=== PATIENT | male | born 1925 | race Caucasian/White ===

== ENCOUNTER 2017-03-16 11:38 | Observation (INO) | payer MEDICARE, OTHER ==
--- NOTE | 2017-03-16 12:03 | ERNOTE ---
Dyspnea - Date Date of Service: 03/16/17 - General Presenting Symptoms: shortness of breath Time Seen by Provider: 03/16/17 11:40 Source: patient Exam Limitations: no limitations - Immun/Allergies/Home Medications Immunizations: IMMUNIZATION HX Immunizations Up to Date Yes History of Influenza Vaccine No Hx Pneumococcal Vaccination More Information Required Allergies/Adverse Reactions: Allergies No Known Allergies Allergy (Unverified 03/16/17 11:52) Home Medications: HOME MEDICATIONS Acetaminophen [Tylenol] 500 mg PO Q6H PRN 03/16/17 [Last Taken Unknown] Aspirin [Lo-Dose Aspirin EC] 81 mg PO DAILY 03/16/17 [Last Taken Unknown] Duloxetine HCl [Cymbalta] 60 mg PO DAILY 03/16/17 [Last Taken Unknown] Furosemide [Lasix] 80 mg PO DAILY 03/16/17 [Last Taken Unknown] Lovastatin 40 mg PO DAILY 03/16/17 [Last Taken Unknown] Metoprolol Succinate [Toprol Xl] 50 mg PO DAILY 03/16/17 [Last Taken Unknown] Multivit-Min36/Iron/Folic Acid [Geritol Complete Tablet] 1 each PO DAILY [Last Taken Unknown] Nitroglycerin [Nitrostat] 0.6 mg SL Q5M PRN 03/16/17 [Last Taken Unknown] Pregabalin [Lyrica] 100 mg PO TID 03/16/17 [Last Taken Unknown] traMADol HCL [Ultram] 50 mg PO Q6H PRN 03/16/17 [Last Taken Unknown] - History of Present Illness Narrative: Pt. comes in with three day history of significant SOB at all times but states that he has had nocturnal SOB for a week prior to the continuous SOB. Pt. denies any CP, fever, recent cough or cold s/sx. Pt. denies any NVD or abd pain. Pt. states tath he always has bloating and swelling and has a hx of bypass sx and is on medications for CHF. Review of Systems - Review of Systems Constitutional: Present: weakness, fatigue, malaise. Absent: fever, chills, diaphoresis EYE: Present: no symptoms reported ENT: Present: no symptoms reported Respiratory: Present: shortness of breath, orthopnea. Absent: cough, wheezing, stridor Cardiology: Present: edema. Absent: chest pain, palpitations Gastrointestinal/Abdominal: Present: eating less. Absent: nausea, vomiting, diarrhea, constipation, abdominal pain, drinking less Genitourinary: Present: no symptoms reported. Absent: frequency, pain, decreased urinary output, discharge Musculoskeletal: Present: no symptoms reported. Absent: back pain, joint pain Skin: Present: no symptoms reported Neurological: Present: no symptoms reported. Absent: headache, dizziness/light- headedness, numbness, tingling All Other Systems: All systems neg except as marked - Patient's Past Medical History Patient History - Medical: Arthritis Patient History - Cardiac/Respiratory: CHF, Hypertension Patient History - Cancer: Prostate Patient History - Surgical Procedures: Coronary Bypass Surgery - Social History Living Situations: home Psych History: No pertinent hx Smoking Status: Never smoker - Immunizations Immunizations Up to Date: Yes Hx Pneumococcal Vaccination: More Information Required to Determine History of Influenza Vaccine: No Physical Exam - Physical Exam General Appearance: Present: wd/wn, alert, no apparent distress Head Exam: Present: normal inspection, no evidence of injury Eye Exam: Normal inspection: bilateral, PERRL: bilateral, EOMI: bilateral Ears, Nose, Throat: Present: normal ENT inspection, normal pharynx Neck: Present: normal inspection, nontender. Absent: lymphadenopathy (R), lymphadenopathy (L) Respiratory: Present: no respiratory distress, chest nontender, decreased breath sounds, crackles Cardiovascular/Chest: Present: regular rate, rhythm, no murmur, normal peripheral pulses Back Exam: Present: normal inspection, normal range of motion, no CVA tenderness , no vertebral tenderness Extremity Exam: Present: normal inspection, non-tender, normal range of motion, pedal edema - +3-4 pitting, extremity edema - +3-4 pitting bilat. Absent: joint redness, joint swelling Neurological Exam: Present: alert, oriented, normal mood/affect, no motor/ sensory deficits Skin Exam: Present: normal color, warm/dry. Absent: pallor, skin rash ED Progress - Date and Time Seen: Date and Time: 03/16/17 13:[address] Cisneros and she would like us to consult cardiology at [facility] to see if they feel pt. is appropriate for treatment here. [address] Davenport at [facility] cardiology and he feels that we can manage pt. but recommends starting Imdur 10mg q 8 po and Hydralazine 25 mg q 8 for vasodilation for 48 hours and continuing as needed for HTN control. He also recommends continuing lasix for CHF exacerbation. [address] Cisneros again and she accepts admission with these recommendations on board. - Results and Orders Patient's Lab Results:: I have reviewed the patient's lab results. - Vital Signs Patient's Vital Signs:: I have reviewed the patient's vital signs. Vital Signs: Vital Signs 03/16/17 11:44 Temperature 37.8 C H Pulse Rate 53 L Respiratory 24 H Rate Blood Pressure 189/93 O2 Sat by Pulse 95 Oximetry - EKG EKG: other - SR with 1st degree avb no acute ST changes - X-Ray X-Ray #1 X-Ray: chest Interpretation: Reviewed by me X-ray Comments: TWO VIEW CHEST Comparison: 04/02/2006 Technique: Upright frontal and lateral views of the chest were obtained. Findings: The cardiac silhouette is mildly enlarged. There is been a median sternotomy since the prior study. The mediastinum and hilum appear essentially unchanged. Again seen is elevation the right hemidiaphragm with adjacent atelectasis. The lung markings are increased in the left lung base , which may reflect a developing infiltrate. There is mild hyperinflation. IMPRESSION: 1. MILDLY ENLARGED CARDIAC SILHOUETTE WITH MEDIAN STERNOTOMY. 2. CHRONIC ELEVATION RIGHT HEMIDIAPHRAGM WITH A SMALL AMOUNT OF ADJACENT ATELECTASIS. 3. INCREASED PARENCHYMAL DENSITY IN THE LEFT LUNG BASE, CONCERNING FOR DEVELOPING INFILTRATE. 4. CLINICAL CORRELATION REQUIRED. - Progress/Reassessment Chief Complaint: Dyspnea Departure Clinical Impression: CHF (congestive heart failure) Qualifiers: Congestive heart failure type: unspecified congestive heart failure type Congestive heart failure chronicity: acute on chronic Qualified Code(s): I50.9 - Heart failure, unspecified Pneumonia Qualifiers: Pneumonia type: due to unspecified organism Laterality: bilateral Lung location : lower lobe of lung Qualified Code(s): J18.9 - Pneumonia, unspecified organism - Departure Disposition: [facility] Condition: Serious Referrals: Meenu Poe MD [Primary Care Provider] -
[2017-03-16 12:06] LABS: Hematocrit 37.9 % (42.0-52.0); Hemoglobin 12.4 gm/dL (13.5-18.0); Mean Cell Volume 96.9 fl (78-100); Mean Corpuscular Hemoglobin 31.7 pg (27-31); Mean Corpuscular Hgb Conc 32.7 g/dl (32-36); Mean Platelet Volume 10.3 fl (6.0-9.5); Neutrophil % 76.6 % (42-75.0); Platelet Count 129 K/mm3 (150-450); Red Blood Count 3.91 M/mm3 (4.7-6.0); Red Cell Distribution Width 13.5 % (11.5-14.0); White Blood Count 6.6 K/mm3 (4.0-10.5)
[2017-03-16 12:25] LABS: Albumin * 3.2 gm/dl (3.4-5.0); Anion Gap 12.8 mmol/L (6.8-13.8); BUN/Creatinine Ratio 18.2 (9.0-21.6); Bilirubin, Total 0.5 mg/dL (0.0-1.1); Calcium * 8.7 mg/dL (7.9-10.9); Carbon Dioxide 31.4 mmol/L (24-32.6); Magnesium 1.9 mg/dL (1.2-2.8); Potassium 4.2 mmol/L (3.4-4.6)
[2017-03-16 12:31] LABS: Troponin I 0.115 ng/ml (0.00-0.10)
[2017-03-16] MEDS ORDERED: ASPIRIN 81 MG TAB.CHEW PO ONE (12:36)
[2017-03-16] MEDS ORDERED: FUROSEMIDE 10 MG/ML VIAL IV ONE (12:41)
[2017-03-16] MEDS ORDERED: FUROSEMIDE 10 MG/ML VIAL ONE (12:52)
[2017-03-16] MEDS ORDERED: ASPIRIN 81 MG TAB.CHEW ONE (12:52)
[2017-03-16] MEDS ORDERED: AZITHROMYCIN 250 MG TABLET PO ONE (12:55)
[2017-03-16] MEDS ORDERED: AZITHROMYCIN 250 MG TABLET ONE (13:11)
[2017-03-16] MEDS ORDERED: FUROSEMIDE 10 MG/ML VIAL IV SCH (13:45)
[2017-03-16] MEDS: hydrALAZINE HCL 25 MG TABLET PO SCH ×2 (15:02→21:53)
[2017-03-16] MEDS: ISOSORBIDE DINITRATE 10 MG TABLET PO SCH ×2 (15:05→22:15)
[2017-03-16] MEDS: PREGABALIN 50 MG CAPSULE PO SCH (17:37)
[2017-03-16] MEDS: FUROSEMIDE 10 MG/ML VIAL IV SCH (20:49)
--- NOTE | 2017-03-16 21:17 | HP ---
Chief Complaint - Chief Complaint Date of Service: 03/16/17 Time of Service: 21:05 Chief Complaint: shortness of breath, orthopnea, increased swelling to legs History of Present Illness: 89 years old male adm to the hospital from ER with reports of increased swelling to his legs, shortness of breath x 3 days, orthopnea and fatigue. pt stated he was having increased shortness of breath with exertion, his family was concerned and brought him to the ER. He denies cough, fever, chills,Patient a poor historian relative elias was called to obtained information but call wasn 't answered. Additional information was obtained from nurse and ER notes. In ER he was given IV Lasix and antbx initiated, CXR: Increased parenchymal density in left lung base concern for developing infiltrate. Mildly enlarge cardiac silhouette., trop 0.115--->0.115 continue to monitor. PMH significant for CABG approximately 10yrs ago, pt did not followed up with granite cutter since. Head Of [employer] consulted in [place] recommendation for Imdur, Lasix and hydralazine. Plan of care discussed with pt he verbalized understanding and agrees. - Patient's Past Medical History Patient History - Medical: Arthritis Patient History - Cardiac/Respiratory: CHF, CVA/Stroke, Hypertension, Myocardial Infarction Patient History - Cancer: Prostate Patient History - Surgical Procedures: Coronary Bypass Surgery, Other - left rotator cuff repair Patient History - Other: None - Family History Mother Family History - Medical: History Unknown Father Family History - Cardiac/Respiratory: Myocardial Infarction - Social History Living Situations: home Psych History: No pertinent hx Smoking Status: Never smoker Have you smoked in the past 12 months: No Alcohol Use: none Drug Use: none - Immunizations Immunizations Up to Date: Yes Hx Pneumococcal Vaccination: More Information Required to Determine History of Influenza Vaccine: No Review Of Systems (GEN) - Review of Systems Generalized/Overall Review: Present: Malaise, Fatigue, Weight gain EENTM: Present: No Symptoms Reported Respiratory: Present: Shortness of Breath, Orthopnea Cardiac: Present: Edema Abdominal: Present: No Symptoms Reported Genitourinary: Present: No Symptoms Reported Musculoskeletal: Present: No Symptoms Reported Neurological: Present: No Symptoms Reported Skin: Present: No Symptoms Reported Endocrine: Present: No Symptoms Reported Immunizations: IMMUNIZATION HX Immunizations Up to Date Yes History of Influenza Vaccine No Hx Pneumococcal Vaccination More Information Required Allergies/Adverse Reactions: Allergies Allergy/AdvReac Type Severity Reaction Status Date / Time No Known Allergies Allergy Verified 03/16/17 14:30 Home Medications: HOME MEDICATIONS Acetaminophen [Tylenol] 650 mg PO Q6H PRN 03/16/17 [Last Taken Unknown] Aspirin [Lo-Dose Aspirin EC] 81 mg PO DAILY 03/16/17 [Last Taken Unknown] Duloxetine HCl [Cymbalta] 60 mg PO DAILY 03/16/17 [Last Taken Unknown] Furosemide [Lasix] 80 mg PO DAILY 03/16/17 [Last Taken Unknown] Lovastatin 40 mg PO QPM 03/16/17 [Last Taken Unknown] Metoprolol Succinate [Toprol Xl] 50 mg PO DAILY 03/16/17 [Last Taken Unknown] Multivit-Min36/Iron/Folic Acid [Geritol Complete Tablet] 1 each PO DAILY [Last Taken Unknown] Nitroglycerin [Nitrostat] 0.6 mg SL Q5M PRN 03/16/17 [Last Taken Unknown] Pregabalin [Lyrica] 100 mg PO TID 03/16/17 [Last Taken Unknown] [place] Oil/[place]-3 Fatty Acids [Fish Oil] 1,200 mg PO DAILY 03/16/17 [Last Taken Unknown] traMADol HCL [Ultram] 50 mg PO Q6H PRN 03/16/17 [Last Taken Unknown] Exam - Exam Vital Signs: Vital Signs - Last Taken Temp 36.6 C 03/16/17 19:29 Pulse 72 03/16/17 20:49 Resp 18 03/16/17 19:29 BP 148/67 03/16/17 20:49 Pulse Ox 91 03/16/17 19:29 Constitutional: Present: Alert, Oriented x3, Cooperative, Morbidly obese ENT Exam: Present: normal ENT inspection Eye Exam: bilateral eye: normal inspection Neck: Present: non-tender, full range of motion Back Exam: Present: normal inspection Breasts: Present: Exam deferred Respiratory: Present: chest non-tender, no respiratory distress, decreased breath sounds Cardiovascular/Chest: Present: no chest tenderness, JVD, edema Peripheral Pulses: dorsalis-pedis (R): 2+, dorsalis-pedis (L): 2+ Abdomen: Present: Normal bowel sounds, soft, nontender /Rectal: Present: Exam deferred Extremity: Present: normal range of motion, lower extremity edema, slow capillary refill, swelling Skin Exam: Present: warm/dry Neurologic: Present: oriented x 3 Appearance: Present: appropriate appearance Eye contact: Present: cooperative Diagnostic Studies: Abnormal Lab Results 03/16/17 Range/Units 16:03 Troponin I 0.115 H* (0.00-0.10) ng/ml Laboratory Results WBC 6.6 K/mm3 (4.0-10.5) 03/16/17 12:00 RBC 3.91 M/mm3 (4.7-6.0) L 03/16/17 12:00 Hgb 12.4 gm/dL (13.5-18.0) L 03/16/17 12:00 Hct 37.9 % (42.0-52.0) L 03/16/17 12:00 MCV 96.9 fl (78-100) 03/16/17 12:00 MCH 31.7 pg (27-31) H 03/16/17 12:00 MCHC 32.7 g/dl (32-36) 03/16/17 12:00 RDW 13.5 % (11.5-14.0) 03/16/17 12:00 Plt Count 129 K/mm3 (150-450) L 03/16/17 12:00 MPV 10.3 fl (6.0-9.5) H 03/16/17 12:00 Immature Gran % (Auto) 0.60 % (0.001-0.429) H 03/16/17 12:00 Immature Gran # (Auto) 0.04 K/mm3 (0.000-0.0310) H 03/16/17 12:00 Neutrophils % 76.6 % (42-75.0) H 03/16/17 12:00 Lymphocytes % 11.8 % (20-51) L 03/16/17 12:00 Monocytes % 10.2 % (0.0-9) H 03/16/17 12:00 Eosinophils % 0.6 % (0.0-3.0) 03/16/17 12:00 Basophils % 0.2 % (0.0-1.0) 03/16/17 12:00 Nucleated RBC % 0.0 k/mm3 (0-1) 03/16/17 12:00 Neutrophils # 5.0 K/mm3 (1.3-6.0) 03/16/17 12:00 Lymphocytes # 0.8 k/mm3 (1.5-3.5) L 03/16/17 12:00 Monocytes # 0.7 k/mm3 (0.0-1.0) 03/16/17 12:00 Eosinophils # 0.0 k/mm3 (0.0-0.7) 03/16/17 12:00 Absolute Basophils 0.0 k/mm3 (0.0-0.1) 03/16/17 12:00 Sodium 147 mmol/L (132-142) H 03/16/17 12:00 Plasma Sodium 148 mmol/L (130-142) H 03/16/17 12:00 Potassium 4.2 mmol/L (3.4-4.6) 03/16/17 12:00 Chloride 107 mmol/L (97-106) H 03/16/17 12:00 Carbon Dioxide 31.4 mmol/L (24-32.6) 03/16/17 12:00 Anion Gap 12.8 mmol/L (6.8-13.8) 03/16/17 12:00 BUN 24 mg/dL (6-23) H 03/16/17 12:00 Creatinine 1.32 mg/dL (0.4-1.4) 03/16/17 12:00 Est GFR (Non-Af Amer) 54 mL/min (60-130) L 03/16/17 12:00 BUN/Creatinine Ratio 18.2 (9.0-21.6) 03/16/17 12:00 Random Glucose 142 mg/dL (70-110) H 03/16/17 12:00 Calcium 8.7 mg/dL (7.9-10.9) 03/16/17 12:00 Calcium Adj for Albumin 9.0 mg/dL (8.4-10.2) 03/16/17 12:00 Phosphorus 3.0 mg/dL (2.2-4.2) 03/16/17 12:00 Magnesium 1.9 mg/dL (1.2-2.8) 03/16/17 12:00 Total Bilirubin 0.5 mg/dL (0.0-1.1) 03/16/17 12:00 AST 24 U/L (0-48) 03/16/17 12:00 ALT 23 U/L (19-67) 03/16/17 12:00 Alkaline Phosphatase 71 U/L (50-170) 03/16/17 12:00 Troponin I 0.115 ng/ml (0.00-0.10) H* 03/16/17 16:03 B-Natriuretic Peptide 1008 pg/mL (5-650) H 03/16/17 12:00 Total Protein 7.0 gm/dL (6.2-8.2) 03/16/17 12:00 Albumin 3.2 gm/dl (3.4-5.0) L 03/16/17 12:00 Assessment/Plan - Assessment/Plan (1) Hypertension Problem: Chronic (2) CHF (congestive heart failure) Problem: Acute Qualifiers: Congestive heart failure type: unspecified congestive heart failure type Congestive heart failure chronicity: acute on chronic Qualified Code(s): I50.9 - Heart failure, unspecified (3) Pneumonia Problem: Acute Qualifiers: Pneumonia type: due to unspecified organism Laterality: bilateral Lung location: lower lobe of lung Qualified Code(s): J18.9 - Pneumonia, unspecified organism
[2017-03-17 00:23] LABS: Urine Bilirubin Negative (NEGATIVE); Urine Blood 250 /ul (NEGATIVE); Urine Ketone Negative (NEGATIVE); Urine Nitrite Negative (NEGATIVE); Urine Protein Negative (NEGATIVE); Urine Urobilinogen Normal (NORMAL)
[2017-03-17 00:42] LABS: Urine Appearance Cloudy; Urine Bacteria TRACE; Urine Color Pale Yellow; Urine RBC 25-50 /hpf (0-5); Urine WBC TRACE /hpf (0-5)
[2017-03-17] MEDS: FUROSEMIDE 10 MG/ML VIAL IV SCH (05:26)
[2017-03-17] MEDS: hydrALAZINE HCL 25 MG TABLET PO SCH ×2 (05:51→13:44)
[2017-03-17] MEDS: ISOSORBIDE DINITRATE 10 MG TABLET PO SCH ×2 (06:06→13:50)
[2017-03-17 06:11] LABS: Hematocrit 37.7 % (42.0-52.0); Hemoglobin 12.2 gm/dL (13.5-18.0); Mean Cell Volume 96.9 fl (78-100); Mean Corpuscular Hemoglobin 31.4 pg (27-31); Mean Corpuscular Hgb Conc 32.4 g/dl (32-36); Mean Platelet Volume 10.5 fl (6.0-9.5); Neutrophil # 5.3 K/mm3 (1.3-6.0); Neutrophil % 69.4 % (42-75.0); Platelet Count 139 K/mm3 (150-450); Red Blood Count 3.89 M/mm3 (4.7-6.0); Red Cell Distribution Width 13.5 % (11.5-14.0); White Blood Count 7.7 K/mm3 (4.0-10.5)
[2017-03-17 06:31] LABS: Anion Gap 11.6 mmol/L (6.8-13.8); BUN/Creatinine Ratio 19.9 (9.0-21.6); Carbon Dioxide 32.2 mmol/L (24-32.6); Chol/HDL Risk Ratio 2.2 mg/dL (3.3-5.0); Estimated Creat Clear 32.1; Potassium 3.8 mmol/L (3.4-4.6)
[2017-03-17] MEDS ORDERED: AZITHROMYCIN 250 MG TABLET PO SCH (09:00)
[2017-03-17] MEDS: PREGABALIN 50 MG CAPSULE PO SCH ×3 (09:20→16:21)
[2017-03-17] MEDS ORDERED: ASPIRIN 81 MG TABLET.DR PO SCH (12:30)
[2017-03-17] MEDS ORDERED: HEPARIN SODIUM,PORCINE 5,000 UNITS/ML VIAL SC SCH (12:30)
[2017-03-17] MEDS ORDERED: DULoxetine HCL 30 MG CAPSULE.SA PO SCH (12:30)
[2017-03-17] MEDS ORDERED: traMADol HCL 50 MG TABLET PO PRN (12:30)
[2017-03-17] MEDS ORDERED: NITROGLYCERIN 0.4 MG/TAB BTL SL PRN (12:42)
[2017-03-17] MEDS ORDERED: NYSTATIN 15 APPL BTL TP PRN (13:03)
[2017-03-17] MEDS ORDERED: FUROSEMIDE 20 MG, FUROSEMIDE 40 MG PO SCH ×2 (15:00)
--- NOTE | 2017-03-17 16:33 | DS ---
(1) Acute decompensated heart failure Problem: Acute Description of Stay: ADMISSION DATE: 03/16/2017 DISCHARGE DATE: 03/17/2017 ADMISSION HPI by OTF Serrano: 89 years old male adm to the hospital from ER with reports of increased swelling to his legs, shortness of breath x 3 days, orthopnea and fatigue. pt stated he was having increased shortness of breath with exertion, his family was concerned and brought him to the ER. He denies cough, fever, chills,Patient a poor historian relative elias was called to obtained information but call wasn 't answered. Additional information was obtained from nurse and ER notes. In ER he was given IV Lasix and antbx initiated, CXR: Increased parenchymal density in left lung base concern for developing infiltrate. Mildly enlarge cardiac silhouette., trop 0.115--->0.115 continue to monitor. 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 Handkerchief Sample Clerk consulted in [place] recommendation for Imdur, Lasix and hydralazine. Plan of care discussed with pt he verbalized understanding and agrees. HOSPITAL COURSE: The patient was admitted to the hospital for acute decompensation of diastolic heart failure. Cardiology from the [facility] hospitals and clinics was consulted by the emergency room physician and per the cardiologists recommendations the patient was continued on his home Lasix and added isosorbide 10 mg TID and hydralazine 25mg PO TID per cardiology dose recommendations. The patient had an uneventful admission and was feeling pretty much back to his baseline on the day of discharge. The patient will need to have close follow-up with his primary care provider and I would also recommend that the patient close follow-up with his straight tooth gear generator operator, Dr. Ashley. The patient should also have a BMP checked within 1 week. Of note, there is question of a possible developing infiltrate on chest x-ray in the emergency department and the patient was started on IV antibiotics at admission. However , the patient's white count is not elevated and he is afebrile so I checked pro- calcitonin which was unremarkable and thus his antibiotics were discontinued. We'll defer to PCP to determine whether or not he or she feels like follow-up chest x-ray is warranted. FOLLOW-UP APPOINTMENTS: -PCP, Dr. Poe, within 1 week -I would recommend that the patient be seen by his Handkerchief Sample Clerk, Dr. Ashley, within the next few weeks. NEW OR CHANGED MEDICATIONS: -Hydralazine 25mg PO TID -Isosorbid Dinitrate 10mg PO TID RADIOLOGY REPORTS: Two-view PA and lateral chest x-ray on 03/16/2017 showed: Mildly enlarged cardiac silhouette with median sternotomy. Chronic elevation right hemidiaphragm with a small amount of adjacent atelectasis. Increased parenchymal density in the left lung base concerning for developing infiltrate. Clinical correlation required. Transthoracic 2-D echocardiogram on 03/17/2017 showed: Left ventricle: Normal size. Mild concentric LVH. Ejection fraction 50-55% . Wall motion normal. Right ventricle: Normal size. Normal wall thickness. Atria: Left atrium is borderline dilated. Right atrial size is normal. Mitral valve: Findings consistent with pulmonary wedge pressures greater than 20 mmHg. Findings consistent with diastolic dysfunction. No evidence of mitral valve prolapse. No mitral valve stenosis. Moderate regurgitation. Tricuspid valve: Not well visualized, but grossly normal. Right ventricular systolic pressure is elevated at 36 mmHg. Aortic valve: Sclerosis without stenosis. Mild regurgitation. Pulmonic valve: Not well visualized. Mild regurgitation. Great vessels: Borderline aortic root dilatation. Pericardium/pleural: No pericardial effusion. Procedures Performed: none Results and Findings: Laboratory Tests 03/16/17 03/16/17 03/16/17 12:00 12:00 16:03 WBC 6.6 Hgb 12.4 L Hct 37.9 L MCV 96.9 Plt Count 129 L Sodium Plasma Sodium Potassium Chloride Carbon Dioxide Anion Gap BUN Creatinine Est GFR (Non-Af Amer) BUN/Creatinine Ratio Random Glucose Calcium Calcium Adj for Albumin 9.0 Phosphorus 3.0 Magnesium 1.9 Total Bilirubin 0.5 AST 24 ALT 23 Alkaline Phosphatase 71 Troponin I 0.115 H* 0.115 H* B-Natriuretic Peptide 1008 H Total Protein 7.0 Albumin 3.2 L Triglycerides Cholesterol LDL Cholesterol VLDL Cholesterol HDL Cholesterol Cholesterol/HDL Ratio Procalcitonin Urine Legionella Ag 03/16/17 03/17/17 03/17/17 22:21 06:05 06:05 WBC Hgb Hct MCV Plt Count 139 L Sodium 148 H Plasma Sodium 148 H Potassium 3.8 Chloride 108 H Carbon Dioxide 32.2 Anion Gap 11.6 BUN 28 H Creatinine 1.41 H Est GFR (Non-Af Amer) 50 L BUN/Creatinine Ratio 19.9 Random Glucose 126 H Calcium 9.0 Calcium Adj for Albumin Phosphorus Magnesium Total Bilirubin AST ALT Alkaline Phosphatase Troponin I B-Natriuretic Peptide Total Protein Albumin Triglycerides 72 Cholesterol 132 LDL Cholesterol 60 L VLDL Cholesterol 14 HDL Cholesterol 58 Cholesterol/HDL Ratio 2.2 L Procalcitonin Urine Legionella Ag Not detected 03/17/17 06:05 WBC Hgb Hct MCV Plt Count Sodium Plasma Sodium Potassium Chloride Carbon Dioxide Anion Gap BUN Creatinine Est GFR (Non-Af Amer) BUN/Creatinine Ratio Random Glucose Calcium Calcium Adj for Albumin Phosphorus Magnesium Total Bilirubin AST ALT Alkaline Phosphatase Troponin I B-Natriuretic Peptide Total Protein Albumin Triglycerides Cholesterol LDL Cholesterol VLDL Cholesterol HDL Cholesterol Cholesterol/HDL Ratio Procalcitonin 0.06 Urine Legionella Ag Discharge Disposition: Home self care Disposition: Home self-care Condition: Stable Discharge Activity: Activity as tolerated Discharge Diet: Low salt, Low fat/chol Referrals: Meenu Poe MD [Primary Care Provider] - Problem Oriented Discharge Instructions to Patient/Family: Heart Failure, Easy- to-Read Additional Patient Instructions (free text): Follow-up with PCP, Dr. Poe on 03/24/17 at 9:45am. Prescriptions (Any new or edited meds): hydrALAZINE HCL [Apresoline] 25 mg PO TID #90 tablet Isosorbide Dinitrate [Sorbitrate, Isordil] 10 mg PO TID #90 tablet Complete Home Medications List: Complete Home Medication List: Acetaminophen [Tylenol] 650 mg PO Q6H PRN 03/16/17 Aspirin [Lo-Dose Aspirin EC] 81 mg PO DAILY 03/16/17 Duloxetine HCl [Cymbalta] 60 mg PO DAILY 03/16/17 Furosemide [Lasix] 80 mg PO DAILY 03/16/17 Lovastatin 40 mg PO QPM 03/16/17 Metoprolol Succinate [Toprol Xl] 50 mg PO DAILY 03/16/17 Multivit-Min36/Iron/Folic Acid [Geritol Complete Tablet] 1 each PO DAILY Nitroglycerin [Nitrostat] 0.6 mg SL Q5M PRN 03/16/17 Pregabalin [Lyrica] 100 mg PO TID 03/16/17 [place] Oil/[place]-3 Fatty Acids [Fish Oil] 1,200 mg PO DAILY 03/16/17 traMADol HCL [Ultram] 50 mg PO Q6H PRN 03/16/17 Isosorbide Dinitrate [Sorbitrate, Isordil] 10 mg PO TID #90 tablet 03/17/17 hydrALAZINE HCL [Apresoline] 25 mg PO TID #90 tablet 03/17/17 Amb Orders for Discharge: Basic Metabolic Panel Time Frame: 03/21/17, Location: Determined By Patient
[2017-03-17 18:48] VITALS: BP 162/75
[2017-03-17] MEDS ORDERED: SIMVASTATIN 20 MG TABLET PO SCH (21:00)
[2017-03-18] MEDS ORDERED: MULTIVIT-MIN/FA/LYCOPEN/LUTEIN 1 TAB TABLET PO SCH (09:00)
[2017-03-18] MEDS ORDERED: OMEGA-3 FATTY ACIDS 1 CAP CAPSULE PO SCH (09:00)
--- NOTE | 2017-03-22 08:05 | ECHO ---
This report is available in the EMR
== END 2017-03-17 18:55 | disposition home or self-care (01) ==
LOC: ER 11:38 → INTOOBSV 13:29 → MS 13:29
PROVIDERS: ADMIT Internal Medicine; ATTEND Internal Medicine
DX: I50.33 Acute on chronic diastolic (congestive) heart failure (principal); I10 Essential (primary) hypertension; M19.90 Unspecified osteoarthritis, unspecified site; Z95.1 Presence of aortocoronary bypass graft
CPT/HCPCS: 36415; 71020; 80048; 80053; 80061; 81001; 83735; 83880; 84100; 84145; 84484; 85025; 87086; 87449; 93005; 93306; 96365; 96372; 96375; 96376; 99285; G0378